=== PATIENT | female | born 1960 | race Caucasian/White ===

== ENCOUNTER 2017-09-11 14:57 | Emergency (ER) | payer OTHER ==
[2017-09-11 15:24] VITALS: BP 119/89; PULSE 99; TEMP 98.2; BMI 22.9
--- NOTE | 2017-09-11 15:37 | PDOC ---
History of Present Illness - History of Present Illness Initial Comments: 09/11/17 15:47 The patient is a 57 year old female with a past medical history of asthma, diverticulitis, COPD, and menopausal, who presents to the ED with right and left quadrant abdominal pain. She reports waking up 5 days ago feeling bloated. Three days ago she reports taking citrate of magnesia. She reports her primary care physician recommended miralax which she took last night. She reports that her PCP told her she was constipated and her heart rate was elevated. She reports taking an X-Ray earlier this morning, which she reports was normal. She reports to have taken citrate of magnesia 3 hours ago. She reports being at work this morning when her abdominal pain began. She reports her abdominal pain to be diffuse across her upper abdominal region. She ranks her pain as an 8 and debilitating. She reports nausea without emesis. She reports SOB due to her asthma upon significant exertion. She reports loose stool due to her intake of miralax and citrate of magnesia. She denies recent fevers, chills, headache or dizziness. She denies recent vomit or constipation. She denies recent dysuria, frequency, urgency or hematuria. She denies recent chest pain. Allergies: Morphine. Past surgical history: None reported. Social history: Former smoker (Quit 20 years ago). Social EtOH use and recreational drug use. <Monique Saldaña - Last Filed: 09/11/17 18:57> <Osmel Pearson - Last Filed: 09/11/17 19:43> - General Chief Complaint: Pain Stated Complaint: RIGHT UPPER ABDOMINAL PAIN Time Seen by Provider: 09/11/17 15:19 Past History <Monique Saldaña - Last Filed: 09/11/17 18:57> - Past Medical History Asthma: Yes COPD: Yes GI Disorders: Yes (DIVERTICULITIS) Kidney Stones: Yes - Suicide/Smoking/Psychosocial Hx Smoking History: Former smoker Have you smoked in the past 12 months: No If you are a former smoker, when did you quit?: 10 YRS Hx Alcohol Use: Yes (SOCIAL) Drug/Substance Use Hx: No Substance Use Type: None <Osmel Pearson - Last Filed: 09/11/17 19:43> - Past Medical History Allergies/Adverse Reactions: Allergies Allergy/AdvReac Type Severity Reaction Status Date / Time morphine Allergy Itching Verified 09/11/17 14:59 Home Medications: Ambulatory Orders Zolpidem Tartrate [Ambien] 10 mg PO HS PRN 11/30/13 Cholecalciferol (Vitamin D3) [Vitamin D3] 5,000 unit PO DAILY 09/11/17 Pantoprazole Sodium [Protonix] 40 mg PO DAILY #14 tablet. 09/11/17 Prednisone 1 tab PO DAILY 09/11/17 Review of Systems - Review of Systems Able to Perform ROS?: Yes Comments:: 09/11/17 15:46 CONSTITUTIONAL:+Bloating. Absent: fever, no chills, no fatigue EYES: Absent: visual changes ENT: Absent: ear pain, no sore throat CARDIOVASCULAR: Absent: chest pain, no palpitations RESPIRATORY: Absent: cough, no SOB GI:+Abdominal Pain. + Nausea. +Diarrhea. Absent:no vomiting, no constipation GENITOURINARY: Absent: dysuria, no frequency, no hematuria MUSKULOSKELETAL: Absent: back pain, no arthralgia, no myalgia SKIN: Absent: rash NEURO: Absent: headache All Other Systems: Reviewed and Negative <Monique Saldaña - Last Filed: 09/11/17 18:57> *Physical Exam - Vital Signs Last Vital Signs Temp Pulse Resp BP Pulse Ox 98.2 F 99 H 20 119/89 95 09/11/17 14:58 09/11/17 14:58 09/11/17 14:58 09/11/17 14:58 09/11/17 14:58 - Physical Exam Comments: 09/11/17 16:18 GENERAL: Well developed, well nourished. Awake and alert. No acute distress. HEENT: Normocephalic, atraumatic. PERRLA, EOMI. No conjunctival pallor. Sclera are non- icteric. Moist mucous membranes. Oropharynx is clear. NECK: Supple. Full ROM. No JVD. Carotid pulses 2+ and symmetric, without bruits. No thyromegaly. No lymphadenopathy. CARDIOVASCULAR: Regular rate and rhythm. No murmurs, rubs, or gallops. Distal pulses are 2+ and symmetric. PULMONARY: No evidence of respiratory distress. Lungs clear to auscultation bilaterally. No rales or rhonchi. ABDOMINAL: +Mildly distended. +Bowel sounds present and high pitch in character. +Diffuse tenderness to palpation most tender in the right lower quadrant of [place]. No significant guarding or rebound. No organomegaly. PELVIC: Normal external genitalia. No discharge of lesions. Cervix no liparus. Uterus nongravern, not enlarged. No adnexal mass or tenderness. No CMT. MUSCULOSKELETAL Normal range of motion at all joints. No bony deformities or tenderness. No CVA tenderness. EXTREMITIES: No cyanosis. No clubbing. No edema. No calf tenderness. SKIN: Warm and dry. Normal capillary refill. No rashes. No jaundice. NEUROLOGICAL: Alert, awake, appropriate. Cranial nerves 2-12 intact. No deficits to light touch and temperature in face, upper extremities and lower extremities. No motor deficits in the in face, upper extremities and lower extremities. Normoreflexic in the upper and lower extremities. Normal speech. Toes are down- going bilaterally. Gait is normal without ataxia. PSYCHIATRIC: Cooperative. Good eye contact. Appropriate mood and affect. <Monique Saldaña - Last Filed: 09/11/17 18:57> ED Treatment Course - LABORATORY CBC & Chemistry Diagram: 09/11/17 15:46 09/11/17 15:35 <Monique Saldaña - Last Filed: 09/11/17 18:57> - LABORATORY CBC & Chemistry Diagram: 09/11/17 15:46 09/11/17 15:35 <Osmel Pearson - Last Filed: 09/11/17 19:43> Progress Note - Progress Note Progress Note: CT is negative. Labs show no significant abnormalities other than 3+ blood in the urine with 3-5 red cells. The possibility of a kidney stone that passed is remote but a consideration. Gastroenteritis is also a consideration. As well as gastritis/early peptic ulcer disease. Will continue proton pump inhibitor and recommend GI ,, [facility] follow-up within one week if pain persists, or return to the emergency room for further evaluation if pain becomes more severe or other symptoms develop. <Osmel Pearson - Last Filed: 09/11/17 19:43> Medical Decision Making - Medical Decision Making 09/11/17 16:06 EKG: Normal sinus rhythm. Prolonged QT. Abnormal ECG. Vent rate: 88bpm. NV interval: 136 ms QRS duration: 78 ms QT/QTc 406/491 ms P-R-T axes 35 20 44 09/11/17 18:53 Abdomen X-Ray Upright and recumbent frontal radiographs were obtained. The intestinal bowel gas pattern appears unremarkable. There is no radiographic evidence of pneumoperitoneum. The soft tissue structures appear unremarkable as visualized. No significant colonic fecal retention is noted. Impression: No definite radiographic abnormality defined. Reported by: Dr. Nadir Muir 09/11/17 18:58 Chest X-Ray No discrete infiltrate or pleural effusion is noted. The heart, hilia and mediastinum demonstrate no obvious abnormality. Impression: No definite interval change is seen in comparison to a prior radiographic study of 02/29/2016. If there is ongoing symptomatology CT evaluation is suggested, nonemergent unless otherwise clinically indicated. Reported by: Dr. Nadir Muir <Monique Saldaña - Last Filed: 09/11/17 18:57> - Medical Decision Making 09/11/17 16:16 Five-day history of worsening lower abdominal pain, seems to have localized in the right lower quadrant. Taking laxatives with resultant diarrhea, small amount , no blood. Nausea but no vomiting. Taking by mouth fluids but no appetite. Examination with tenderness at McBurney's point, mild to moderate, but no guarding or rebound. Pelvic exam with no CMT, adnexal masses or tenderness, discharge or lesions. <Osmel Pearson - Last Filed: 09/11/17 19:43> *DC/Admit/Observation/Transfer - Attestations Scribe Attestion: 09/11/17 15:48 Documentation prepared by Monique Saldaña, acting as medical office representative for Osmel Pérez MD. <Monique Saldaña - Last Filed: 09/11/17 18:57> - Discharge Dispostion Admit: No <Osmel Pearson - Last Filed: 09/11/17 19:43> Diagnosis at time of Disposition: Viral gastroenteritis - Discharge Dispostion Disposition: HOME Condition at time of disposition: Stable - Patient Instructions Printed Discharge Instructions: DI for Viral Gastroenteritis -- Adult Additional Instructions: Rest, clear liquid diet. If symptoms persist, see career placement specialist, urologist , and [facility] for further examination and treatment. Return to the ER if symptoms worsen or other severe symptoms occur. - Post Discharge Activity Forms/Work/School Notes: Back to Work
[2017-09-11 15:58] LABS: BASOPHIL 0.3 % (0-2.0); EOSINOPHIL 0.2 % (0-4.5); MCHC 33.3 g/dl (32.0-36.0); MEAN PLT VOLUME 9.5 fl (7.5-11.1); NEUTROPHILS 84.9 % (42.8-82.8); PLATELET COUNT 330 K/MM3 (134-434); RDW 12.6 % (11.6-15.6); WHITE BLOOD COUNT 7.2 K/mm3 (4.0-10.8)
[2017-09-11 16:29] LABS: ALBUMIN 4.4 g/dl (3.5-5.0); ALK PHOS 75 U/L (32-92); ANION GAP 9 (8-16); CALCIUM 9.6 mg/dl (8.4-10.2); CO2 26 mmol/L (22-28); CPK 71 IU/L (26-192); CREATININE 0.8 mg/dl (0.6-1.3); GLUCOSE,RANDOM 114 mg/dl (74-106); SGOT/AST 20 U/L (10-42); SGPT/ALT 15 U/L (10-40); TOT PROT 7.3 g/dl (6.4-8.3)
[2017-09-11] MEDS ORDERED: PANTOPRAZOLE SODIUM 40 MG in SODIUM CHLORIDE 100 ML IVPB ONE (16:44)
[2017-09-11] MEDS ORDERED: PANTOPRAZOLE SODIUM 40 MG VIAL ONE (16:54)
[2017-09-11 17:03] LABS: TROPONIN I (DFP) < 0.03 ng/ml (0.03-0.50)
[2017-09-11 17:32] LABS: URINE APPEARANCE Clear; URINE BILIRUBIN Negative (NEGATIVE); URINE GLUCOSE (UA) Negative (NEGATIVE); URINE KETONE 1+ (NEGATIVE); URINE LEUK ESTERASE Negative (NEGATIVE); URINE NITRITE Negative (NEGATIVE); URINE PROTEIN Negative (NEGATIVE); URINE UROBILINOGEN 0.2 (0.2-1.0)
[2017-09-11 17:45] LABS: URINE BLOOD 3+ (NEGATIVE); URINE COLOR YELLOW
[2017-09-11 17:59] LABS: URINE WBC 0-2 (0-5)
--- NOTE | 2017-09-12 13:25 | EKG ---
Test Reason : Blood Pressure : / mmHG Vent. Rate : 088 BPM Atrial Rate : 088 BPM P-R Int : 136 ms QRS Dur : 078 ms QT Int : 406 ms P-R-T Axes : 035 020 044 degrees QTc Int : 491 ms NORMAL SINUS RHYTHM RSR' OR QR PATTERN IN V1 SUGGESTS RIGHT VENTRICULAR CONDUCTION DELAY PROLONGED QT ABNORMAL ECG WHEN COMPARED WITH ECG OF 29-FEB-2016 21:01, NO SIGNIFICANT CHANGE WAS FOUND Confirmed by MIKEY GARCIA MD ([id number] on 09/12/2017 1:25:06 PM Referred By: MD [place] Confirmed By:MIKEY GARCIA MD
== END 2017-09-11 20:01 | disposition home or self-care (01) ==
LOC: FER 14:57
PROC: 3E033GC Introduction of Other Therapeutic Substance into Peripheral Vein, Percutaneous Approach (ICD-10-PCS; principal; 2017-09-11)
DX: A08.4 Viral intestinal infection, unspecified (principal)
CPT/HCPCS: 36415; 71010-TC; 74177-TC; 80053; 81003; 81015; 82550; 83690; 84484; 84703; 85025; 93005; 99282-25

== ENCOUNTER 2020-07-07 09:31 | Day surgery (SDC) | payer OTHER ==
--- OUTSIDE RECORDS SUMMARY | 2020-06-28 13:33 | XMS ---
:1960 [facility] Care Team Providers Name Role Phone RICHIE MONCADA NP. Unavailable MONCADA BRICK GRADER, T. Unavailable MONCADA BRICK GRADER, T. Unavailable Unavailable MONCADA BRICK GRADER, T. Unavailable Unavailable Jaylene Unavailable Unavailable Jaylene Unavailable Unavailable Jaylene Unavailable Unavailable Jaylene Unavailable Unavailable Jaylene Unavailable Unavailable Jaylene Unavailable Unavailable Jaylene Unavailable Unavailable Jaylene Unavailable Unavailable Jaylene Unavailable Unavailable MONCADA BRICK GRADER, T. Unavailable Unavailable MONCADA BRICK GRADER, T. Unavailable Unavailable MONCADA BRICK GRADER, T. Unavailable Unavailable MONCADA BRICK GRADER, T. Unavailable Unavailable Re-disclosure Warning The records that you are about to access may contain information from federally- assisted alcohol or drug abuse programs. If such information is present, then the following federally mandated warning applies: This information has been disclosed to you from records protected by federal confidentiality rules (42 CFR part 2). The federal rules prohibit you from making any further disclosure of this information unless further disclosure is expressly permitted by the written consent of the person to whom it pertains or as otherwise permitted by 42 CFR part 2. A general authorization for the release of medical or other information is NOT sufficient for this purpose. The Federal rules restrict any use of the information to criminally investigate or prosecute any alcohol or drug abuse patient.The records that you are about to access may contain highly sensitive health information, the redisclosure of which is protected by Article 27-F of the [facility] Public Health law. If you continue you may haveaccess to information: Regarding HIV / AIDS; Provided by facilities licensed or operated by the [facility] Office of Mental Health; or Provided by the [facility] Office for People With Developmental Disabilities. If such information is present, then the following [facility] mandated warning applies: This information has been disclosed to you from confidential records which are protected by state law. State law prohibits you from making any further disclosure of this information without the specific written consent of the person to whom it pertains, or as otherwise permitted by law. Any unauthorized further disclosure in violation of state law may result in a fine or assisted sentence or both. A general authorization for the release of medical or other information is NOT sufficient authorization for further disclosure. Allergies and Adverse Reactions Type Description Substance Reaction Status Data Source(s ) D morphine morphine ITCHING [facility] Drug allergy MORPHINE SULFATE Sulfur Active MEDGEN ([facility], ) Encounters Encounter Providers Location Date Indications Data Source(s ) Attender: Chay 06/22/2020 [facility]ender: Chay Mariee 06/22/2020 12:00:00 A M EDT MEDGEN ([facility]) Office Attender: Chay Mariee 06/22/2020 12:00:00 A M EDT MEDGEN ([facility]) Office Attender: Chay Mariee 06/22/2020 12:00:00 A M EDT MEDGEN ([facility]) Office Outpatient Attender: RICHIE ATKINS [facility] 05/13/2020 Diverticulitis [place] Pre andre MONCADA CT 02:10:49 PM EDT [facility] NPAttender: [facility] MONCADA NPAttender: RICHIE MONCADA NPAttender: RICHIE MONCADA NPAttender: RICHIE MONCADA NPAttender: RICHIE MONCADA NPAttender: RICHIE MONCADA NPReferrer: RICHIE MONCADA BRICK GRADER Diverticulitis Outpatient Attender: RICHIE Gustafson 05/13/2020 [place] Pres quinn MONCADA [place]UST 02:10:49 PM EDT [facility] - 05/13/[address] 11:59:59 PM EDT P Attender: RICHIE [facility] CT 05/10/2020 [place]iculitis [facility]ADA 11:22:20 AM EDT [place] [place] NPAttender: [facility] RICHIE MONCADA NPAttender: RICHIE MONCADA NPAttender: RICHIE MONCADA NPAttender: RICHIE MONCADA NPAttender: RICHIE MONCADA NPAttender: RICHIE MONCADA NPReferrer: RICHIE MONCADA BRICK GRADER Diverticulitis P Attender: RICHIE [facility] CT 05/10/2020 Diverticulitis [facility] MONCADA NPAttender: 10:41:18 AM EDT [facility] NPAttender: RICHIE MONCADA NPAttender: RICHIE MONCADA NPAttender: RICHIE MONCADA NPAttender: RICHIE MONCADA NPAttender: RICHIE MONCADA NPReferrer: RICHIE MONCADA BRICK GRADER Diverticulitis P Attender: RICHIE [facility] CT 05/10/2020 Diverticulitis [facility]ADA NPAttender: 10:37:35 AM EDT [facility] NPAttender: RICHIE MONCADA NPAttender: RICHIE MONCADA NPAttender: RICHIE MONCADA NPAttender: RICHIE MONCADA NPAttender: RICHIE MONCADA NPReferrer: RICHIE MONCADA BRICK GRADER Diverticulitis P Attender: RICHIE [facility] CT 05/06/2020 Diverticulitis [facility] NPAttender: 09:39:37 AM EDT [facility] NPAttender: RICHIE MONCADA NPAttender: RICHIE MONCADA NPAttender: RICHIE MONCADA NPAttender: RICHIE MONCADA NPAttender: RICHIE MONCADA NPReferrer: RICHIE MONCADA BRICK GRADER Diverticulitis Immunizations Vaccine Date Status Description Data Source(s) New in 2011. IIV4 09/17/2018 12:00:00 completed ME BANUELOS ([facility], PC) Medications Medication Brand Start Product Dose Route Administrative Pharmacy at Indications Reaction Description Data Name Date Form Instructions Instructions Source(s) Rosuvastati ROSUVA 06/22/ TABLET 30 complet ROSU VASTATIN MEDGEN (St n calcium 5 STATIN 2019 ed [facility] MG Oral :28820 12:00: Medical, Tablet 4 00 AM PC) ROSUVASTATI EDT N:[id number] Zolpidem AMBIEN 06/22/ TABLET 30 complet AMBIEN MEDGEN (St tartrate 10 :41632 2019 ed [facility] MG Oral 5 12:00: Medical, Tablet 00 AM PC) [Ambien] EDT AMBIEN:8548 75 Hydrochloro HYDROC 05/02/ CAPSULE 30 complet HYD ROCHLOROT MEDGEN (St thiazide HLOROT 2019 ed HIAZIDE [facility] 12.5 MG HIAZID 12:00: Medical, Oral E:1999 00 AM PC) Capsule 03 EDT HYDROCHLORO THIAZIDE:19 9903 montelukast MUARIZIO 05/02/ TABLET 30 complet JON ELUKAST MEDGEN (St 10 MG Oral UKAST: 2019 ed [facility] Tablet [id number] 12:00: Medical, MONTELUKAST 00 AM PC) :[id number] EDT pantoprazol PANTOP 05/02/ DELAYED 30 complet EDGAR TOPRAZOLE MEDGEN (St e 40 MG RAZOLE 2019 RELEASE ed [facility] Delayed :61382 12:00: TABLET Medica l, Release 0 00 AM PC) Oral Tablet EDT PANTOPRAZOL E:001753 Zolpidem ZOLPID 12/29/ TABLET 30 complet ZOLPIDE M MEDGEN (St tartrate 10 EM:854 2019 ed [facility] MG Oral 873 12:00: Medical, Tablet 00 AM PC) ZOLPIDEM:85 EDT 4873 Albuterol VENTOL 07/22/ AEROSOL 1 complet SEBASTIÁN SURENDRA HFA MEDGEN (St 0.09 IN 2018 ed [facility] MG/ACTUAT HFA:13 12:00: Medica l, Metered 14522 00 AM PC) Dose EDT Inhaler [Ventolin] VENTOLIN HFA:[id number] Vitamin C q06055 .0 Oral [place] 2018 tab [facility] 11:22: an - 37 AM [facility] Vitamin B12 u51889 .0 Oral [place] 2018 tab [facility] 11:22: an - 27 AM [facility] Vitamin D n25446 .0 Oral [place] 2018 tab [facility] 11:22: an - 19 AM [facility] pantoprazol pantop 40.0 Oral [place] e 40 MG razole 2018 mg [facility] Delayed 40 mg 11:22: an - Release oral 08 AM Orr Oral Tablet enteri [facility] pantoprazol c Hospital e 40 mg coated Center oral tablet enteric coated tablet montelukast maurizio .0 [place] 10 MG Oral ukast 2018 mg Pres[facility] Tablet 10 mg 08:54: an - montelukast oral 40 AM Orr 10 mg oral tablet [facility] tablet [facility] Zolpidem zolpid .0 [place] tartrate 10 em 10 2018 mg Presbyt bam MG Oral mg 08:54: an - Tablet oral 37 AM [place] zolpidem 10 tablet [facility] mg oral Hospital tablet Center Ventolin [id number] 11/05/ HFA 90 2018 [facility] mcg/inh 08:54: an - inhalation 34 AM [place] aerosol [facility] with [facility] adapter Center Flovent [id number] Diskus 100 2018 [facility] i mcg 08:54: an - inhalation 31 AM [place] powder [facility] Cholecalcif CHOLEC CHOLEC ALCIFE MEDGEN (St virgil 5000 ALCIFE 2017 ed ROL [facility] UNT Oral ROL:24 12:00: Medical , Capsule 0029 00 AM PC) CHOLECALCIF EST VIRGIL:747075 Vitamin B CYANOC CYANOCOB ALAM MEDGEN (St 12 0.5 MG OBALAM 2017 ed [place] [facility] Oral Tablet [place]:313 12:00: Medi annika, CYANOCOBALA 896 00 AM PC) MIN:945508 EST Insurance Providers Payer name Policy type Policy ID Covered Covered republican's Policy P mohan / Coverage republican ID relationship to Davey Inf ormation type davey [facility] [id number] 1 [id number] 700 CARE [place] CARLOS ALBERTO [id number] SP [id number] HEALTH NON CAP CARLOS ALBERTO[facility] [id number] [facility] HEALTH PLAN CARLOS ALBERTO [id number] SP [id number] HEALTH NON CAP Problems, Conditions, and Diagnoses Code Display Name Description Problem Effective Data Type Dates Source(s) J20.9 Acute ACUTE BRONCHITIS, Problem 10/19/2019 MEDGEN ([address] bronchitis, UNSPECIFIED 12:00:00 AM [facility] unspecified EST Medical, PC) Z76.0 Encounter for ENCOUNTER FOR ISSUE OF Problem 07/22/2019 MEDGEN (St issue of repeat REPEAT PRESCRIPTION 12:00:00 AM [facility] prescription [facility], ) G47.00 Insomnia, INSOMNIA, UNSPECIFIED Problem 07/22/2019 MED GEN (St unspecified 12:00:00 AM [facility], ) K58.2 Mixed irritable MIXED IRRITABLE BOWEL Problem 9 MEDGEN ([address] bowel syndrome SYNDROME 12:00:00 AM [facility], ) R09.81 Nasal congestion NASAL CONGESTION Problem 09/17/2018 ME DGEN (St 12:00:00 AM [facility], ) R60.0 Localized edema LOCALIZED EDEMA Problem 03/12/2018 MEDG EN (St 12:00:00 AM [facility], ) E78.5 Hyperlipidemia, HYPERLIPIDEMIA, Problem 01/29/2018 MEDG EN (St unspecified UNSPECIFIED 12:00:00 AM [facility], ) R60.9 Edema, EDEMA, UNSPECIFIED Problem 01/29/2018 MEDGEN (St unspecified 12:00:00 AM [facility], ) K21.9 Gastro-esophagea GASTRO-ESOPHAGEAL REFLUX Problem 10/22 MEDGEN (St l reflux disease DISEASE WITHOUT 12:00:00 AM [facility] without ESOPHAGITIS [facility], ) esophagitis Z80.0 Family history FAMILY HISTORY OF Problem 09/10/2017 MED GEN (St of malignant MALIGNANT NEOPLASM OF 12:00:00 AM [facility] neoplasm of DIGESTIVE ORGANS [facility] , ) digestive organs E78.00 Pure PURE Problem 09/10/2017 MEDGEN (St hypercholesterol HYPERCHOLESTEROLEMIA 12:00:00 AM [facility] emia, [facility], ) unspecified K59.04 Chronic CHRONIC IDIOPATHIC Problem 09/10/2017 MEDGEN ([address] idiopathic CONSTIPATION 12:00:00 AM [facility] constipation [facility], ) J45.901 Unspecified UNSPECIFIED ASTHMA WITH Problem 09/10/2017 MEDGEN (St asthma with (ACUTE) EXACERBATION 12:00:00 AM [facility] (acute) [facility], ) exacerbation R14.0 Abdominal ABDOMINAL DISTENSION Problem 09/10/2017 MEDG EN (St distension (GASEOUS) 12:00:00 AM [facility] (gaseous) [facility], ) R07.89 Other chest pain OTHER CHEST PAIN Problem 09/10/2017 ME DGEN (St 12:00:00 AM [facility], ) R05 Cough COUGH Problem 09/10/2017 MEDGEN (St 12:00:00 AM [facility], ) Surgeries/Procedures Procedure Description Date Indications Data Source(s) Documentation of current 06/22/2020 MED GEN ([facility] medications (procedure) 12:00:00 AM EDT jose miguel, ) ECG ROUTINE ECG W/LEAST 06/22/2020 MEDG EN ([facility] 12 LDS W/I&R 12:00:00 AM [facility], ) Documentation of current 10/19/2019 MED GEN ([facility] medications (procedure) 12:00:00 AM [facility] jose miguel, ) Documentation of current 10/19/2019 MED GEN ([facility] medications (procedure) 12:00:00 AM [facility] OFFICE OUTPATIENT VISIT 10/19/2019 MEDG EN ([facility] 15 MINUTES 12:00:00 AM [facility], ) Documentation of current 07/22/2019 MED GEN ([facility] medications (procedure) 12:00:00 AM EDT jose miguel, ) Documentation of current 07/22/2019 MED GEN ([facility] medications (procedure) 12:00:00 AM EDT jose miguel, ) Documentation of current 07/22/2019 MED GEN ([facility] medications (procedure) 12:00:00 AM EDT jose miguel, ) Documentation of current 07/22/2019 MED GEN ([facility] medications (procedure) 12:00:00 AM EDT jose miguel, ) Documentation of current 07/22/2019 MED GEN ([facility] medications (procedure) 12:00:00 AM EDT jose miguel, PC) Documentation of current 07/22/2019 MED GEN ([facility] medications (procedure) 12:00:00 AM EDT jose miguel, ) Documentation of current 07/22/2019 MED GEN ([facility] medications (procedure) 12:00:00 AM EDT jose miguel, ) Documentation of current 07/22/2019 MED GEN ([facility] (procedure) [facility] Documentation of current 07/22/2019 MED GEN ([facility] medications (procedure) 12:00:00 AM [facility] Documentation of current 07/22/2019 MED GEN ([facility] medications (procedure) 12:00:00 AM [facility] Documentation of current 07/22/2019 MED GEN ([facility] medications (procedure) 12:00:00 AM EDT [facility], ) Documentation of current 07/22/2019 MED GEN ([facility] medications (procedure) 12:00:00 AM EDT [facility], ) Documentation of current 07/22/2019 MED GEN ([facility] medications (procedure) 12:00:00 AM EDT [facility], ) Documentation of current 07/22/2019 MED GEN ([facility] medications (procedure) 12:00:00 AM T [facility], ) Documentation of current 07/22/2019 MED GEN (Cs[facility] medications (procedure) 12:00:00 AM EDT [facility], ) Injection, vitamin b-12 07/22/2019 MEDG EN ([facility] cyanocobalamin, up to 12:00:00 AM EDT [facility], ) 1000 mcg OFFICE OUTPATIENT VISIT 07/22/2019 MEDG EN ([facility] 15 MINUTES 12:00:00 AM [facility], ) THERAPEUTIC 07/22/2019 [facility] ([facility] PROPHYLACTIC/DX INJECTION 12:00:00 AM [facility], ) SUBQ/IM INFLUENZA VACCINE 07/22/2019 MEDGEN ([facility] 12:00:00 AM [facility], ) IMADM PRQ ID SUBQ/IM NJXS 07/22/2019 IA DGEN ([facility] 1 VACCINE 12:00:00 AM [facility], ) Documentation of current 02/25/2019 MED GEN ([facility] medications (procedure) 12:00:00 [facility] Documentation of current 02/25/2019 MED GEN ([facility] medications (procedure) 12:00:00 AM EDT [facility], ) OFFICE OUTPATIENT VISIT 02/25/2019 MEDG EN ([facility] 15 MINUTES 12:00:00 AM KATERIN Salas, MILA) Documentation of current 09/17/2018 MED GEN ([facility] medications (procedure) 12:00:00 AM MILA Pool) Documentation of current 09/17/2018 MED GEN ([facility] (procedure) 12:00:00 AM MILA Pool) Documentation of current 09/17/2018 MED GEN ([facility] medications (procedure) 12:00:00 AM BRAD gillespie PC) Documentation of current 09/17/2018 MED GEN ([facility] medications (procedure) 12:00:00 AM BRAD gillespie PC) Documentation of current 09/17/2018 MED GEN ([facility] medications (procedure) 12:00:00 AM MILA Pool) Documentation of current 09/17/2018 MED GEN ([facility] medications (procedure) 12:00:00 AM BRAD gillespie, PC) Documentation of current 09/17/2018 MED GEN ([facility] medications (procedure) 12:00:00 AM MILA Pool) Documentation of current 09/17/2018 MED GEN ([facility] medications (procedure) 12:00:00 AM MILA Pool) Documentation of current 09/17/2018 MED GEN ([facility] medications (procedure) 12:00:00 AM MILA Pool) Documentation of current 09/17/2018 MED GEN ([facility] medications (procedure) 12:00:00 AM BRAD gillespie PC) Documentation of current 09/17/2018 MED GEN ([facility] medications (procedure) 12:00:00 AM BRAD gillespie PC) Documentation of current 09/17/2018 MED GEN ([facility] medications (procedure) 12:00:00 AM BRAD gillespie PC) Documentation of current 09/17/2018 MED GEN ([facility] medications (procedure) 12:00:00 AM BRAD gillespie PC) Documentation of current 09/17/2018 MED GEN ([facility] medications (procedure) 12:00:00 AM BRAD gillespie, PC) Documentation of current 09/17/2018 MED GEN ([facility] medications (procedure) 12:00:00 AM BRAD gillespie, PC) Documentation of current 09/17/2018 MED GEN ([facility] medications (procedure) 12:00:00 AM BRAD gillespie, ) Documentation of current 09/17/2018 MED GEN ([facility] medications (procedure) 12:00:00 AM BRAD gillespie ) Documentation of current 09/17/2018 MED GEN ([facility] medications (procedure) 12:00:00 AM BRAD gillespie, ) Documentation of current 09/17/2018 MED GEN ([facility] medications (procedure) 12:00:00 AM BRAD gillespie PC) Documentation of current 09/17/2018 MED GEN ([facility] medications (procedure) 12:00:00 AM BRAD gillespie, PC) Documentation of current 09/17/2018 MED GEN ([facility] medications (procedure) 12:00:00 AM BRAD gillespie, PC) Documentation of current 09/17/2018 MED GEN ([facility] medications (procedure) 12:00:00 AM BRAD gillespie PC) Documentation of current 09/17/2018 MED GEN ([facility] medications (procedure) 12:00:00 AM BRAD gillespie, ) Documentation of current 09/17/2018 MED GEN ([facility] medications (procedure) 12:00:00 AM BRAD gillespie, PC) Documentation of current 09/17/2018 MED GEN ([facility] (procedure) 12:00:00 AM BRAD gillespie ) Injection, vitamin b-12 09/17/2018 MEDG EN ([facility] cyanocobalamin, up to 12:00:00 AM EST Me biggs, PC) 1000 mcg OFFICE OUTPATIENT VISIT 09/17/2018 MEDG EN ([facility] 15 MINUTES 12:00:00 AM [facility], PC) THERAPEUTIC 09/17/2018 MED[facility] ([facility] PROPHYLACTIC/DX INJECTION 12:00:00 AM [facility], PC) SUBQ/IM INFLUENZA VACCINE 09/17/2018 MEDGEN ([facility] 12:00:00 AM [facility], PC) IMADM PRQ ID SUBQ/IM NJXS 09/17/2018 ME DGEN ([facility] 1 VACCINE 12:00:00 AM [facility], PC) Documentation of current 03/12/2018 MED GEN ([facility] medications (procedure) 12:00:00 AM KATERIN gillespie, ) Documentation of current 03/12/2018 MED GEN ([facility] medications (procedure) 12:00:00 AM EDT edical, ) Documentation of current 03/12/2018 MED GEN ([facility] (procedure) 12:00:00 [facility] Documentation of current 03/12/2018 MED GEN ([facility] medications (procedure) 12:00:00 AM EDT [facility] OFFICE OUTPATIENT VISIT 03/12/2018 MEDG EN ([facility] 15 MINUTES 12:00:[address] [facility] Medical, ) Documentation of current 01/29/2018 MED GEN ([facility] medications (procedure) 12:00:00 AM [facility] ) Documentation of current 01/29/2018 MED GEN ([facility] medications (procedure) 12:00:00 AM EDT [facility] ) Documentation of current 01/29/2018 MED GEN ([facility] medications (procedure) 12:00:00 AM EDT [facility] ) Documentation of current 01/29/2018 MED GEN ([facility] medications (procedure) 12:00:00 AM EDT [facility], ) Injection, vitamin b-12 01/29/2018 MEDG EN ([facility] cyanocobalamin, up to 12:00:00 AM EDT [facility], ) 1000 mcg OFFICE OUTPATIENT VISIT 01/29/2018 MEDG EN ([facility] 15 MINUTES 12:00:00 AM ED Medical, ) THERAPEUTIC 01/29/2018 MEDGEN ([facility] PROPHYLACTIC/DX INJECTION 12:00:00 AM [facility], ) SUBQ/IM Documentation of current 10/22/2017 MED GEN ([facility] medications (procedure) 12:00:00 AM [facility] edical, ) OFFICE OUTPATIENT VISIT 10/22/2017 MEDG EN ([facility] 15 MINUTES 12:00:00 AM [facility] Medical, ) Peak expiratory flow rate 09/10/2017 ME DGEN ([facility] meter, hand held 12:00:00 AM [facility] Medical, ) NONINVASIVE EAR/PULSE 09/10/2017 MEDGEN ([facility] OXIMETRY OVERNIGHT 12:00:00 AM EST Medica l, PC) MONITOR PRESSURIZED/NONPRESSURIZE 09/10/2017 ME DGEN ([facility] D INHALATION TREATMENT 12:00:00 AM EST Me dical, PC) ECG ROUTINE ECG W/LEAST 09/10/2017 MEDG EN ([facility] 12 LDS W/I&R 12:00:00 AM EST Medical, PC) Results ID Date Data Source [id number] 05/13/2020 04:57:16 PM EDT [facility] [id number] Hospital Center Name Value Range Interpretation Description Data Source(s ) Supporting Code Document(s ) RADRPT <table border="1" [facility] viry width="95%"><[facility] [place] [facility]><col [facility] width="25%"></col>< col width="25%"></col>< col width="25%"></col>< col width="25%"></col>< /colgroup><tbody><t r><td>Exam Date Time</td><td>Proced ure</td><td>Perform ing Provider</td><td>St atus</td></tr><tr>< td>05/13/20 5:14 PM</td><td>CT Abdomen/Pelvis W Contrast</td><td>ASIM BATEMAN; </td><td>Auth (Verified)</td></tr ></tbody></table><p aragraph>Notes:</pa ragraph><paragraph> (CT Abdomen/Pelvis W Contrast) Reason For Exam: Diverticulitis</par agraph><paragraph>< content>Report</con tent>
<content ID="[id number]">CT scan of abdomen and pelvis with contrast

C linical History: Abdominal pain. Diverticulitis

Helical axial images were obtained from lung bases to the symphysis
symph ysis pubis with oral and IV contrast.

Approximately 100 cc of Optiray IV was given.
Automated exposure control is utilized for this examination.
<b r/>The lung bases demonstrate linear atelectatic changes in the right
middle lobe and in the lingula segment..
Small hiatal hernia is noted.
The liver, spleen, pancreas, and the adrenal glands appear
unremark able.
The gallbladder is contracted. No calcified gallstone is noted..
Evaluat ion of kidneys demonstrate no hydronephrosis or hydroureter.
<b r/>No significant bowel distention is identified.
The appendix is visualized and appears unremarkable.
T here is nonspecific mild thickening of sigmoid colon associated with
multiple diverticuli which may be secondary to chronic diverticulosis
or due to mild diverticulitis. No significant infiltration of
pericolonic fat or fluid collection or abscess is identified.
No significant retroperitoneal or pelvic adenopathy is noted.
The bladder appears unremarkable.
< br/>Impression: nonspecific mild thickening of sigmoid colon associated
with multiple diverticuli which may be secondary to chronic
diverti culosis or due to mild diverticulitis. No significant
inf iltration of pericolonic fat or fluid collection or abscess is
identified.< /content>
<cont ent> Final
Dictated By: Bentley Queen MD 05.13.2020 5:20 pm

Release d By: (Electronic Signature)
Sign ed: Bentley Queen MD 05.13.2020 5:20 pm

Transcr ibed: 05.13.2020 5:22 pm</content></fernando raph> Procedure Social History Code Duration Value Status Description Data Source(s ) Smoking 06/22/2020 Smoked less completed Smoked less than a MEDGE N ([facility] 12:00:00 AM EDT than a pack per pack per day fo r 20 Medical, ) day for 20 years Stopped years Stopped smoking 20 years smoking 20 ago years ago Smoking 06/22/2020 Former smoker completed Former smoker MEDGEN ( [facility] 12:00:00 AM [facility], ) Vital Signs ID Date Data Source UNK Name Value Range Interpretation Code Description Data Source(s) Heart rate 78 /min 78 /min [facility] ([facility], ) Respiratory rate 14 /min 14 /min MEDGEN ( [facility], ) Body mass index 25.5 kg/m2 25.5 kg/m2 MEDGEN (S t [facility] (BMI) [Ratio] [facility], ) Diastolic blood 70 mm[Hg] 70 mm[Hg] MEDGEN ([facility] pressure [facility], ) Systolic blood 126 mm[Hg] 126 mm[Hg] MEDGEN ([facility], ) Body weight 153 lb 153 lb [facility]GEN ([facility], ) Body height 65 in 65 in MEDGEN ([facility] [place], ) Heart rate 92 /min 92 /min MED[facility] ([facility], ) Respiratory rate 16 /min 16 /min MEDGEN ( [facility] [place], ) Body temperature 98.1 F 98.1 F MEDGEN ( [facility], ) Diastolic blood 74 mm[Hg] 74 mm[Hg] MEDGEN ([facility], ) Systolic blood 108 mm[Hg] 108 mm[Hg] MEDGEN ([facility], ) Heart rate 78 /min 78 /min MEDGEN ([facility], ) Respiratory rate 14 /min 14 /min MEDGEN ( [facility] [place], ) Body mass index 23.3 kg/m2 23.3 kg/m2 [facility] ([facility] (BMI) [Ratio[facility], ) Diastolic blood 72 mm[Hg] 72 mm[Hg] MEDGEN ([facility], ) Systolic blood 116 mm[Hg] 116 mm[Hg] MEDGEN ([facility], ) Body weight 140 lb 140 lb MEDGEN ([facility], ) Body height 65 in 65 in MEDGEN ([facility] [place], ) Heart rate 96 /min 96 /min MEDGEN ([facility], ) Respiratory rate 14 /min 14 /min MEDGEN ( [facility], ) Body mass index 25.3 kg/m2 25.3 kg/m2 MED[facility] ([facility] (BMI) [Ratio] [facility], ) Diastolic blood 82 mm[Hg] 82 mm[Hg] MEDGEN ([facility], ) Systolic blood 126 mm[Hg] 126 mm[Hg] MEDGEN ([facility], ) Body weight 152 lb 152 lb MEDGEN ([facility] [place], ) Body height 65 in 65 in MEDGEN ([facility] [place], ) Heart rate 80 /min 80 /min MEDGEN ([facility], ) Respiratory rate 12 /min 12 /min MEDGEN ( [facility] [place], ) Body temperature 98.9 F 98.9 F MEDGEN ( [facility] [place], ) Body mass index 24.1 kg/m2 24.1 kg/m2 MED[facility] ([facility] (BMI) [Ratio] [facility], ) Diastolic blood 74 mm[Hg] 74 mm[Hg] MEDGEN ([facility], ) Systolic blood 116 mm[Hg] 116 mm[Hg] MEDGEN ([facility], ) Body weight 145 lb 145 lb MEDGEN ([facility] [place], ) Body height 65 in 65 in [facility]GEN ([facility], ) Heart rate 78 /min 78 /min MEDGEN ([facility], ) Respiratory rate 12 /min 12 /min MEDGEN ( [facility], ) Body mass index 23.5 kg/m2 23.5 kg/m2 [facility] ([facility] (BMI) [Ratio] [facility], ) Diastolic blood 80 mm[Hg] 80 mm[Hg] MEDGEN ([facility], ) Systolic blood 128 mm[Hg] 128 mm[Hg] MEDGEN ([facility], ) Body weight 141 lb 141 lb MEDGEN ([facility] [place], ) Body height 65 in 65 in MEDGEN ([facility] [place], ) Heart rate 84 /min 84 /min MEDGEN ([facility], ) Respiratory rate 12 /min 12 /min MEDGEN ( [facility] [place], ) Body mass index 23.6 kg/m2 23.6 kg/m2 [facility] ([facility] (BMI) [Ratio[facility], ) Diastolic blood 60 mm[Hg] 60 mm[Hg] [facility] ([facility], ) Systolic blood 102 mm[Hg] 102 mm[Hg] [facility] ([facility], ) Body weight 142 lb 142 lb [facility] ([facility], ) Body height 65 in 65 in [facility] ([facility], ) Heart rate 76 /min 76 /min [facility], ) Respiratory rate 12 /min 12 /min [facility] ( [facility], ) Body mass index 24 kg/m2 24 kg/m2 MED[facility] ([facility] (BMI) [Ratio] [facility], ) Diastolic blood 70 mm[Hg] 70 mm[Hg] [facility] ([facility], ) Systolic blood 106 mm[Hg] 106 mm[Hg] MED[facility] ([facility], ) Body weight 144 lb 144 lb [facility] ([facility], ) Body height 65 in 65 in MEDGEN ([facility], ) Heart rate 92 /min 92 /min [facility], ) Respiratory rate 14 /min 14 /min [facility] ( [facility], ) Body mass index 23 kg/m2 23 kg/m2 [facility] ([facility] (BMI) [Ratio[facility], ) Diastolic blood 76 mm[Hg] 76 mm[Hg] [facility] ([facility], ) Systolic blood 116 mm[Hg] 116 mm[Hg] [facility] ([facility], ) Body weight 138 lb 138 lb [facility] ([facility], ) Body height 65 in 65 in [facility], ) Patient Treatment Plan of Care Planned Activity Planned Date Details Description Data Source (s) Vitamin C 11/06/2017 [facility] - 11:22:[address] [facility] Vitamin B12 11/06/2017 [facility] - 11:22:[address] [facility] Vitamin D 11/06/2017 [facility] - 11:22:[address] [facility] pantoprazole 40 MG 11/06/2017 [facility] gross - Delayed Release Oral 11:22:08 AM [facility] Tablet [place] montelukast 10 MG Oral 11/05/2017 [facility] - Tablet 08:54:[address] [facility] Zolpidem tartrate 10 MG 11/05/2017 [facility] - Oral Tablet 08:54:[address] [facility] Ventolin HFA 90 mcg/inh 11/05/2017 [facility] - inhalation aerosol with 08:54:34 AM [facility] Flovent Diskus 100 mcg 11/05/2017 [facility] - inhalation powder 08:54:31 AM [facility]
[2020-07-04 13:37] VITALS: BMI 25.7
--- NOTE | 2020-07-07 09:19 | OP ---
Operative Note - Note: Operative Date: 07/07/20 Pre-Operative Diagnosis: Left shoulder mass Operation: Left shoulder mass excision Post-Operative Diagnosis: Same as Pre-op Surgeon: [facility] Educator: Kathi Verdin Anesthesia: General Operative Report Dictated: Yes
--- OUTSIDE RECORDS SUMMARY | 2020-07-07 10:05 | XMS ---
:1960 Author Organization [facility] Care Team Providers Name Role Phone RICHIE MONCADA NP Unavailable MONCADA PAINTER TUMBLING BARREL, T. Unavailable MONCADA PAINTER TUMBLING BARREL, T. Unavailable Unavailable MONCADA PAINTER TUMBLING BARREL, T. Unavailable Unavailable Jaylene Unavailable Unavailable Jaylene Unavailable Unavailable Jaylene Unavailable Unavailable Jaylene Unavailable Unavailable Jaylene Unavailable Unavailable Jaylene Unavailable Unavailable Jaylene Unavailable Unavailable Jaylene Unavailable Unavailable Jaylene Unavailable Unavailable MONCADA PAINTER TUMBLING BARREL, T. Unavailable Unavailable MONCADA PAINTER TUMBLING BARREL, T. Unavailable Unavailable MONCADA PAINTER TUMBLING BARREL, T. Unavailable Unavailable MONCADA PAINTER TUMBLING BARREL, T. Unavailable Unavailable Re-disclosure Warning The records [...] is protected by Article 27-F of the [facility] Public Health law. If you continue you may haveaccess to information: Regarding HIV / AIDS; Provided by facilities licensed or operated by the [facility] Office of Mental Health; or Provided by the [facility] Office for People With Developmental Disabilities. If such information is present, then the following [facility] mandated warning applies: This information has been [...] Data Source(s ) D morphine morphine ITCHING [facility] Drug allergy MORPHINE SULFATE Sulfur Active [facility] [place] [place] Encounters Encounter Providers Location Date Indications Data Source(s ) Attender: Chay 06/22/2020 [facility] [place] [facility] [place] [facility] Attender: Chay Mariee 06/22/2020 12:00:00 A M EDT MEDGEN ([facility]) Office Attender: Chay Mariee 06/22/2020 12:00:00 A M EDT MEDGEN ([facility]) Office Attender: Chay Mariee 06/22/2020 12:00:00 A M EDT MEDGEN ([facility]) Office Outpatient Attender: RICHIE ATKINS [facility] 05/13/2020 Diverticulitis [place] Pre sbyteobie MONCADA CT 02:10:49 PM EDT [facility] NPAttender: [facility] CORAL NPAttender: RICHIE MONCADA NPAttender: RICHEI MONCADA NPAttender: RICHIE MONCADA NPAttender: RICHIE MONCADA NPAttender: RICHIE MONCADA NPReferrer: RICHIE MONCADA PAINTER TUMBLING BARREL Diverticulitis Outpatient Attender: RICHIE Gustafson 05/13/2020 [place] Pres quinn MONCADA [facility] 11:59:59 PM EDT P Attender: RICHIE [facility] CT 05/10/2020 [place]itis [place] [facility] 11:22:20 AM EDT [place] NPAttender: [facility] RICHIE MONCADA NPAttender: RICHIE MONCADA NPAttender: RICHIE MONCADA NPAttender: RICHIE MONCADA NPAttender: RICHIE MONCADA NPAttender: RICHIE MONCADA NPReferrer: RICHIE MONCADA PAINTER TUMBLING BARREL Diverticulitis P Attender: RICHIE [facility] 05/10/2020 [facility] NPAttender: 10:41:18 AM EDT [facility] NPAttender: RICHIE MONCADA NPAttender: RICHIE MONCADA NPAttender: RICHIE MONCADA NPAttender: RICHIE MONCADA NPAttender: RICHIE MONCADA NPReferrer: RICHIE MONCADA PAINTER TUMBLING BARREL Diverticulitis P Attender: RICHIE [facility] CT 05/10/2020 Diverticulitis [place] [facility] NPAttender: 10:37:35 AM EDT [facility] NPAttender: RICHIE MONCADA NPAttender: RICHIE MONCADA NPAttender: RICHIE MONCADA NPAttender: RICHIE MONCADA NPAttender: RICHIE MONCADA NPReferrer: RICHIE MONCADA PAINTER TUMBLING BARREL Diverticulitis P Attender: RICHIE [facility] CT 05/06/2020 Diverticulitis [place] [facility] [place] NPAttender: 09:39:37 AM EDT [facility] NPAttender: RICHIE MONCADA NPAttender: RICHIE MONCADA NPAttender: RICHIE MONCADA NPAttender: RICHIE MONCADA NPAttender: RICHIE MONCADA NPReferrer: RICHIE MONCADA PAINTER TUMBLING BARREL Diverticulitis Immunizations Vaccine Date Status Description Data Source(s) New in 2011. IIV4 09/17/2018 12:00:00 completed ME BANUELOS ([facility] Medical, ) Medications Medication Brand Start Product Dose Route Administrative Pharmacy ray Indications Reaction Description Data Name Date Form Instructions Instructions Source(s) Rosuvastati ROSUVA 06/22/ TABLET 30 complet ROSU VASTATIN MEDGEN (St n calcium 5 STATIN 2019 ed [facility] MG Oral :70571 12:00: Medical, Tablet 4 00 AM PC) ROSUVASTATI EDT N:[id number] Zolpidem AMBIEN 06/22/ TABLET 30 complet AMBIEN MEDGEN (St tartrate 10 :32314 2019 ed [facility] MG Oral 5 12:00: Medical, Tablet 00 AM PC) [Ambien] EDT AMBIEN:8548 75 Hydrochloro HYDROC 05/02/ CAPSULE 30 complet HYD ROCHLOROT MEDGEN (St thiazide HLOROT 2019 ed HIAZIDE [facility] 12.5 MG HIAZID 12:00: Medical, Oral E:1999 00 AM PC) Capsule 03 EDT HYDROCHLORO THIAZIDE:19 9903 montelukast MAURIZIO 05/02/ TABLET 30 complet JON ELUKAST MEDGEN (St 10 MG Oral UKAST: 2019 ed [facility] Tablet [id number] 12:00: Medical, MONTELUKAST 00 AM PC) :[id number] EDT pantoprazol PANTOP 05/02/ DELAYED 30 complet EDGAR TOPRAZOLE MED[facility] (St e 40 MG RAZOLE 2019 RELEASE ed [facility] Delayed :65189 12:00: TABLET Medica l, Release 0 00 AM PC) Oral Tablet EDT PANTOPRAZOL E:197652 Zolpidem ZOLPID 12/29/ TABLET 30 complet ZOLPIDE M MEDGEN (St tartrate 10 EM:854 2019 ed [facility] MG Oral 873 12:00: Medical, Tablet 00 AM PC) ZOLPIDEM:85 EDT 4873 Albuterol VENTOL 07/22/ AEROSOL 1 complet SEBASTIÁN SURENDRA HFA MEDGEN (St 0.09 IN 2018 ed [facility] MG/ACTUAT HFA:13 12:00: Medica l, Metered 34326 00 AM PC) Dose EDT Inhaler [Ventolin] VENTOLIN HFA:[id number] Vitamin C g71434 .0 Oral [place] 2018 tab [facility] 11:22: an - 37 AM [facility] Vitamin B12 j45157 .0 Oral [place] 2017 tab [facility] 11:22: an - 27 AM [facility] Vitamin D b96626 .0 Oral [place] 2018 tab [facility] 11:22: an - 19 AM [facility] pantoprazol pantop 01/31/ 40.0 Oral [place] e 40 MG razole 2018 mg [facility] Delayed 40 mg 11:22: an - Release oral 08 AM Orr Oral Tablet enteri [facility] pantoprazol c Hospital e 40 mg coated Center oral tablet enteric coated tablet montelukast maurizio .0 [place] 10 MG Oral ukast 2018 mg [facility] Tablet 10 mg 08:54: an - montelukast oral 40 AM Orr 10 mg oral tablet EST [place] [facility] [place] Zolpidem zolpid .0 [place] tartrate 10 em 10 2018 mg Presbyt bam MG Oral mg 08:54: an - Tablet oral 37 AM [place] zolpidem 10 tablet [facility] mg oral Hospital tablet [place] Ventolin [id number] 11/05/ [place] HFA 90 2018 [facility] mcg/inh 08:54: an - inhalation 34 AM [place] aerosol [facility] with Hospital adapter Center Flovent [id number] 11/05/ [place] Diskus 100 2018 [facility] i mcg 08:54: an - inhalation 31 AM [place] powder [facility] Cholecalcif CHOLEC CHOLEC ALCIFE MEDGEN (St virgil 5000 ALCIFE 2017 ed ROL [facility] UNT Oral ROL:24 12:00: Medical , Capsule 0029 00 AM PC) CHOLECALCIF EST VIRGIL:512117 Vitamin B CYANOC CYANOCOB ALAM MEDGEN (St 12 0.5 MG OBALAM 2017 ed [place] [facility] Oral Tablet [place]:313 12:00: Medi annika, CYANOCOBALA 896 00 AM PC) MIN:591332 EST Insurance Providers Payer name Policy type Policy ID Covered Covered libertarian's Policy P mohan / Coverage libertarian ID relationship to Davey Inf ormation type davey CARLOS ALBERTO [id number] SP [id number] HEALTH NON CAP CARLOS ALBERTO [id number] 1 [id number] [place]ARE [place] CARLOS ALBERTO/KENNETH [facility] [id number] [facility] HEALTH PLAN CARLOS ALBERTO [id number] SP [id number] HEALTH NON CAP Problems, Conditions, and Diagnoses Code Display Name Description Problem Effective Data Type Dates Source(s) J20.9 Acute ACUTE BRONCHITIS, Problem 10/19/2019 MED[facility] (St bronchitis, UNSPECIFIED 12:00:00 AM [facility] unspecified EST Medical, ) Z76.0 Encounter for ENCOUNTER FOR ISSUE OF Problem 07/22/2019 MEDGEN (St issue of repeat REPEAT PRESCRIPTION 12:00:[address] [facility] prescription [facility]) G47.00 Insomnia, INSOMNIA, UNSPECIFIED Problem 07/22/2019 MED GEN (St unspecified 12:00:00 AM [facility] [place]) K58.2 Mixed irritable MIXED IRRITABLE BOWEL Problem 9 MEDGEN ([address] bowel syndrome SYNDROME 12:00:00 AM [facility], ) R09.81 Nasal congestion NASAL CONGESTION Problem 09/17/2018 ME DGEN (St 12:00:00 AM [facility], ) R60.0 Localized edema LOCALIZED EDEMA Problem 03/12/2018 MEDG EN (St 12:00:00 AM [facility], ) E78.5 Hyperlipidemia, HYPERLIPIDEMIA, Problem 01/29/2018 MEDG EN (St unspecified UNSPECIFIED 12:00:00 AM [facility], ) R60.9 Edema, EDEMA, UNSPECIFIED Problem 01/29/2018 MEDGEN (St unspecified 12:00:00 AM [facility] [place]) K21.9 Gastro-esophagea GASTRO-ESOPHAGEAL REFLUX Problem 10/22 MEDGEN (St l reflux disease DISEASE WITHOUT 12:00:00 AM [facility] without ESOPHAGITIS [facility], ) esophagitis Z80.0 Family history FAMILY HISTORY OF Problem 09/10/2017 MED GEN (St of malignant MALIGNANT NEOPLASM OF 12:00:00 AM [facility] neoplasm of DIGESTIVE ORGANS [facility] , ) digestive organs E78.00 Pure PURE Problem 09/10/2017 MEDGEN (St hypercholesterol HYPERCHOLESTEROLEMIA 12:00:00 AM [facility] emia, [facility], ) unspecified K59.04 Chronic CHRONIC IDIOPATHIC Problem 09/10/2017 MEDGEN (St idiopathic CONSTIPATION 12:00:00 AM [facility] constipation [facility], ) J45.901 Unspecified UNSPECIFIED ASTHMA WITH Problem 09/10/2017 MEDGEN (St asthma with (ACUTE) EXACERBATION 12:00:00 AM [facility] (acute) [facility], ) exacerbation R14.0 Abdominal ABDOMINAL DISTENSION Problem 09/10/2017 MEDG EN (St distension (GASEOUS) 12:00:00 AM [facility] (gaseous) [facility], ) R07.89 Other chest pain OTHER CHEST PAIN Problem 09/10/2017 ME DGEN (St 12:00:00 AM [facility], ) R05 Cough COUGH Problem 09/10/2017 MEDGEN (St 12:00:00 AM [facility], ) Surgeries/Procedures Procedure Description Date Indications Data Source(s) Documentation of current 06/22/2020 MED GEN ([facility] medications (procedure) 12:00:00 AM EDT jose miguel, ) ECG ROUTINE ECG W/LEAST 06/22/2020 MEDG EN ([facility] 12 LDS W/I&R 12:00:00 AM [facility], ) Documentation of current 10/19/2019 MED GEN ([facility] medications (procedure) 12:00:00 AM [facility] jose miguel, ) Documentation of current 10/19/2019 MED GEN ([facility] medications (procedure) 12:00:00 AM [facility] jose miguel, ) OFFICE OUTPATIENT VISIT 10/19/2019 MEDG EN ([facility] 15 MINUTES 12:00:00 AM [facility], ) Documentation of current 07/22/2019 [...] GEN ([facility] medications (procedure) [facility] Documentation of current 07/22/2019 MED GEN ([facility] medications (procedure) 12:00:00 [facility], ) Documentation of current 07/22/2019 MED GEN ([facility] medications (procedure) 12:00:00 [facility], ) Documentation of current 07/22/2019 MED GEN ([facility] medications (procedure) 12:00:00 AM EDT [facility], ) Documentation of current 07/22/2019 MED GEN ([facility] medications (procedure) 12:00:00 [facility], ) Documentation of current 07/22/2019 MED GEN ([facility] medications (procedure) 12:00:00 AM EDT [facility], ) Documentation of current 07/22/2019 MED GEN ([facility] medications (procedure) 12:00:00 AM T [facility], ) Documentation of current 07/22/2019 MED GEN ([facility] medications (procedure) 12:00:00 AM EDT [facility], ) Injection, vitamin b-12 07/22/2019 MEDG EN ([facility] cyanocobalamin, up to 12:00:00 AM EDT [facility], ) 1000 mcg OFFICE OUTPATIENT VISIT 07/22/2019 MEDG EN ([facility] 15 MINUTES 12:00:00 AM [facility], ) THERAPEUTIC 07/22/2019 MEDGEN ([facility] PROPHYLACTIC/DX INJECTION 12:00:00 AM [facility], ) SUBQ/IM INFLUENZA VACCINE 07/22/2019 MEDGEN ([facility] 12:00:00 AM [facility], ) IMADM PRQ ID SUBQ/IM NJXS 07/22/2019 [place] DGEN ([facility] 1 VACCINE 12:00:00 AM [facility], ) Documentation of current 02/25/2019 MED GEN ([facility] medications (procedure) 12:00:00 [facility] ) Documentation of current 02/25/2019 MED GEN ([facility] medications (procedure) 12:00:00 [facility], ) OFFICE OUTPATIENT VISIT 02/25/2019 MEDG EN [...] medications (procedure) 12:00:00 AM BRAD gillespie, ) Injection, vitamin b-12 09/17/2018 MEDG EN ([facility] cyanocobalamin, up to 12:00:00 AM EST [facility], PC) 1000 mcg OFFICE OUTPATIENT VISIT 09/17/2018 MEDG EN ([facility] 15 MINUTES 12:00:00 AM [facility], PC) THERAPEUTIC 09/17/2018 MEDGEN ([facility] PROPHYLACTIC/DX INJECTION 12:00:00 AM [facility] Medical, PC) SUBQ/IM INFLUENZA VACCINE 09/17/2018 MEDGEN ([facility] 12:00:00 AM [facility], PC) IMADM PRQ ID SUBQ/IM NJXS 09/17/2018 [place] DGEN ([facility] 1 VACCINE 12:00:00 AM [facility], PC) Documentation of current 03/12/2018 MED GEN ([facility] medications (procedure) 12:00:[facility], ) Documentation of current 03/12/2018 MED GEN ([facility] medications (procedure) 12:00:00 AM [facility], ) Documentation of current 03/12/2018 MED GEN ([facility] medications (procedure) 12:00:00 AM [facility], ) Documentation of current 03/12/2018 MED GEN ([facility] medications (procedure) 12:00:00 AM [facility], ) OFFICE OUTPATIENT VISIT 03/12/2018 MEDG EN ([facility] 15 MINUTES 12:00:00 AM ED Medical, ) Documentation of current 01/29/2018 MED GEN ([facility] medications (procedure) 12:00:00 [facility], ) Documentation of current 01/29/2018 MED GEN ([facility] medications (procedure) 12:00:00 AM EDT [facility], ) Documentation of current 01/29/2018 MED GEN ([facility] medications (procedure) 12:00:00 AM EDT [facility], ) Documentation of current 01/29/2018 MED GEN ([facility] medications (procedure) 12:00:00 AM EDT [facility], ) Injection, vitamin b-12 01/29/2018 MEDG EN ([facility] cyanocobalamin, up to 12:00:00 AM EDT [facility], ) 1000 mcg OFFICE OUTPATIENT VISIT 01/29/2018 MEDG EN ([facility] THERAPEUTIC 01/29/2018 MEDGEN ([facility] PROPHYLACTIC/DX INJECTION 12:00:00 AM [facility], ) SUBQ/IM Documentation of current 10/22/2017 MED GEN ([facility] medications (procedure) 12:00:00 AM EST edical, ) OFFICE OUTPATIENT VISIT 10/22/2017 MEDG EN ([facility] 15 MINUTES 12:00:00 AM [facility] Medical, ) Peak expiratory flow rate 09/10/2017 [place] DGEN ([facility] meter, hand held 12:00:00 AM [facility] Medical, ) NONINVASIVE EAR/PULSE 09/10/2017 MEDGEN ([facility] OXIMETRY OVERNIGHT 12:00:00 AM EST Medica , ) MONITOR PRESSURIZED/NONPRESSURIZE 09/10/2017 ME DGEN ([facility] D INHALATION TREATMENT 12:00:00 AM EST Me dical, PC) ECG ROUTINE ECG W/LEAST 09/10/2017 MEDG EN ([facility] 12 LDS W/I&R 12:00:00 AM EST Medical, PC) Results ID Date Data Source [id number] 05/13/2020 04:57:16 PM EDT [facility] [id number] Hospital Center Name Value Range Interpretation Description Data Source(s ) Supporting Code Document(s ) RADRPT <table border="1" [facility] viry width="95%"><[facility]><col Hospital Center width="25%"></col>< col width="25%"></col>< col width="25%"></col>< col width="25%"></col>< /colgroup><tbody><t r><td>Exam Date Time</td><td>Proced ure</td><td>Perform ing Provider</td><td>St atus</td></tr><tr>< td>05/13/20 5:14 PM</td><td>CT Abdomen/Pelvis W Contrast</td><td>ASIM BATEMAN; </td><td>Auth (Verified)</td></tr ></tbody></table><p aragraph>Notes:</pa ragraph><paragraph> (CT Abdomen/Pelvis W Contrast) Reason For Exam: Diverticulitis</par agraph><paragraph>< content>Report</con tent>
<content ID="[id number]">CT scan of abdomen and pelvis with [...] than a pack per pack per day [address], ) day for 20 years Stopped years Stopped smoking 20 years smoking 20 ago years ago Smoking 06/22/2020 Former smoker completed Former smoker MED[facility] ( [facility] 12:00:00 AM [facility], ) Vital Signs ID Date Data Source UNK Name Value Range Interpretation Code Description Data Source(s) Heart rate 78 /min 78 /min [facility] ([facility], ) Respiratory rate 14 /min 14 /min [facility] ( [facility] Body mass index 25.5 kg/m2 25.5 kg/m2 MEDGEN (S [facility] (BMI) [Ratio[facility], ) Diastolic blood 70 mm[Hg] 70 mm[Hg] MED[facility] ([facility], ) Systolic blood 126 mm[Hg] 126 mm[Hg] [facility] ([facility], ) Body weight 153 lb 153 lb [facility] ([facility], ) Body height 65 in 65 in MEDGEN ([facility], ) Heart rate 92 /min 92 /min MED[facility] ([facility], ) Respiratory rate 16 /min 16 /min [facility] ( [facility] Body temperature 98.1 F 98.1 F [facility] ( [facility] Diastolic blood 74 mm[Hg] 74 mm[Hg] MEDGEN (S t [facility], ) Systolic blood 108 mm[Hg] 108 mm[Hg] MEDGEN ([facility], ) Heart rate 78 /min 78 /min MEDGEN ([facility], ) Respiratory rate 14 /min 14 /min [facility] ( [facility] [place] Body mass index 23.3 kg/m2 23.3 kg/m2 MEDGEN (S [facility] ([facility]) [[facility], ) Diastolic blood 72 mm[Hg] 72 mm[Hg] MEDGEN (S t [facility] pressure [facility], ) Systolic blood 116 mm[Hg] 116 mm[Hg] MEDGEN ([facility], ) Body weight 140 lb 140 lb MED[facility] ([facility], ) Body height 65 in 65 in MEDGEN ([facility], ) Heart rate 96 /min 96 /min MEDGEN ([facility], ) Respiratory rate 14 /min 14 /min [facility] ( [facility], ) Body mass index 25.3 kg/m2 25.3 kg/m2 MEDGEN (S t [facility] (BMI) [Ratio] Medical, ) Diastolic blood 82 mm[Hg] 82 mm[Hg] MEDGEN (S [facility], ) Systolic blood 126 mm[Hg] 126 mm[Hg] [facility] ([facility], ) Body weight 152 lb 152 lb MEDGEN ([facility], ) Body height 65 in 65 in MEDGEN ([facility], ) Heart rate 80 /min 80 /min MEDGEN ([facility], ) Respiratory rate 12 /min 12 /min MED[facility] ( [facility], ) Body temperature 98.9 F 98.9 F MEDGEN ( [facility], ) Body mass index 24.1 kg/m2 24.1 kg/m2 MEDGEN (S t [facility] (BMI) [Ratio] Medical, ) Diastolic blood 74 mm[Hg] 74 mm[Hg] MEDGEN (S [facility], ) Systolic blood 116 mm[Hg] 116 mm[Hg] [facility] ([place], ) Body weight 145 lb 145 lb MEDGEN ([facility], ) Body height 65 in 65 in MEDGEN ([facility], ) Heart rate 78 /min 78 /min MEDGEN ([facility], ) Respiratory rate 12 /min 12 /min [facility] ( [place], ) Body mass index 23.5 kg/m2 23.5 kg/m2 MEDGEN (S t [facility] (BMI) [Ratio] Medical, ) Diastolic blood 80 mm[Hg] 80 mm[Hg] MEDGEN (S [facility], ) Systolic blood 128 mm[Hg] 128 mm[Hg] [facility] ([facility], ) Body weight 141 lb 141 lb MEDGEN ([facility], ) Body height 65 in 65 in MEDGEN ([facility], ) Heart rate 84 /min 84 /min MEDGEN ([facility], ) Respiratory rate 12 /min 12 /min [facility] ( [place], ) Body mass index 23.6 kg/m2 23.6 kg/m2 MEDGEN (S t [facility] (BMI) [Ratio] Medical, ) Diastolic blood 60 mm[Hg] 60 mm[Hg] MEDGEN (S t [facility] pressure Medical, ) Systolic blood 102 mm[Hg] 102 mm[Hg] MED[facility] ([facility], ) Body weight 142 lb 142 lb [facility] ([facility], ) Body height 65 in 65 in [facility] ([facility], ) Heart rate 76 /min 76 /min [facility], ) Respiratory rate 12 /min 12 /min [facility] ( [facility], ) Body mass index 24 kg/m2 24 kg/m2 MEDGEN (S t [facility] (BMI) [Ratio] Medical, ) Diastolic blood 70 mm[Hg] 70 mm[Hg] MEDGEN (S t [facility] pressure Medical, ) Systolic blood 106 mm[Hg] 106 mm[Hg] MED[facility] ([facility], ) Body weight 144 lb 144 lb [facility] ([facility], ) Body height 65 in 65 in [facility] ([facility], ) Heart rate 92 /min 92 /min [facility] ([facility], ) Respiratory rate 14 /min 14 /min [facility] ( [facility], ) Body mass index 23 kg/m2 23 kg/m2 MEDGEN (S t [facility] (BMI) [Ratio] Medical, ) Diastolic blood 76 mm[Hg] 76 mm[Hg] MEDGEN (S [facility], ) Systolic blood 116 mm[Hg] 116 mm[Hg] MED[facility] ([facility], ) Body weight 138 lb 138 lb [facility] ([facility], ) Body height 65 in 65 in MEDGEN ([facility], ) Patient Treatment Plan of Care Planned Activity Planned Date Details Description Data Source (s) Vitamin C 11/06/2017 [facility] - 11:22:37 AM [facility] Vitamin B12 11/06/2017 [facility] - 11:22:27 AM [facility] Vitamin D 11/06/2017 [facility] - 11:22:19 AM [facility] pantoprazole 40 MG 11/06/2017 [place] [facility] - Delayed Release Oral 11:22:08 AM [facility] montelukast 10 MG Oral 11/05/2017 [place] [facility] - Tablet 08:54:40 AM [facility] Zolpidem tartrate 10 MG 11/05/2017 [place] [facility] - Oral Tablet 08:54:37 AM [facility] Ventolin HFA 90 mcg/inh 11/05/2017 [place] [facility] - inhalation aerosol with 08:54:34 AM [facility] Flovent Diskus 100 mcg 11/05/2017 [place] [facility] - inhalation powder 08:54:31 AM [facility]
[2020-07-07] MEDS ORDERED: LIDOCAINE 1%/EPI 1:100000 (20 ML MULTI DOSE VIAL) ONE (12:46)
[2020-07-07] MEDS ORDERED: MIDAZOLAM HCL 2 MG/2 ML SINGLE DOSE VIAL ONE ×2 (12:53)
[2020-07-07] MEDS ORDERED: PROPOFOL 20 ML ONE ×2 (12:53)
[2020-07-07] MEDS ORDERED: LIDOCAINE HCL/PF 2% SDV 5ML VIAL ONE (12:54)
[2020-07-07] MEDS ORDERED: ceFAZolin SODIUM 1 GM VIAL ONE (13:15)
[2020-07-07] MEDS ORDERED: ONDANSETRON 4 MG/2 ML VIAL ONE (13:15)
[2020-07-07] MEDS ORDERED: BUPIVACAINE HCL/PF 0.5% (5MG/ML) 10 ML VIAL ONE (13:17)
[2020-07-07] MEDS ORDERED: LIDOCAINE 1%/EPI 1:100000 (50 ML MULTI DOSE VIAL) NR ONE (13:29)
[2020-07-07] MEDS ORDERED: BUPIVACAINE HCL/PF 0.5% (5MG/ML) 10 ML VIAL IJ ONE (13:29)
[2020-07-07 14:05] VITALS: PULSE 77; TEMP 97.8
--- NOTE | 2020-07-07 14:10 | OP ---
DATE OF OPERATION: DATE OF DICTATION: 07/07/2020 PREOPERATIVE DIAGNOSIS: Right shoulder subcutaneous mass. POSTOPERATIVE DIAGNOSIS: Right shoulder subcutaneous mass. PROCEDURE: Right shoulder mass excision. SURGEON: William Deluna MD SERVICES TECH: SISI Schilling ANESTHESIA: Local and sedation. POSTOPERATIVE CONDITION: Stable. COMPLICATIONS: None. SPECIMEN: Mass x1. INDICATIONS: This is a pleasant woman who has been suffering from a slowly enlarging mass for many years. Because of the persisting enlargement and some discomfort she wanted to have it excised. Other treatment options were discussed including observation. The patient voiced understanding and elected to proceed. PROCEDURE: The patient was brought to the operating room where sedation was administered. The right upper extremity was prepped and draped in the usual sterile fashion. A preoperative dose of antibiotics was given and the usual timeout procedure was performed. Incision was marked out linear over the mass now. There was a small amount of skin change covering the mass over the more proximal portion. An ellipsoid incision was planned to excise this area as well. The area was then injected subcutaneously with a 50% mixture of 1% lidocaine with epinephrine and 5% Marcaine. The incision was then carried down through skin to subcutaneous tissue. Blunt spreading was used to expose the mass which was round and gaming-colored in nature. It was adherent to the skin over. There was adherence to the surrounding soft tissues. After freeing the mass from the soft tissue, it was easily withdrawn from the body. The wound was then copiously irrigated. The subcutaneous tissue was approximated using 2-0 Vicryl. The skin was closed using running 4-0 Monocryl. Steri-Strips were placed and sterile dressings. Patient was transferred to recovery room in stable condition. Jelly POWELL/[id number]
[2020-07-07 15:22] VITALS: BP 130/84
--- NOTE | 2020-07-12 15:17 | PATH ---
Surgical Pathology Report Patient Name: ELI FRANK Med. Rec. #: [id number] /Age/Gender: 1960 (Age: 59) / F Account: [id number] Location: [facility] Taken: 07/07/2020 Received: 07/07/2020 Reported: 07/12/2020 Physicians: William Deluna M.D. 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 Electronically Signed Nayana Funes M.D. Gross Description Received in formalin labeled "right shoulder mass," is a 2.2 x 2.0 x 1.2 cm gaming, firm cystic structure which is partially surfaced by a 1.4 x 0.5 cm gaming-brown, elliptical, unremarkable portion of skin. Sectioned and entirely submitted in three cassettes. /07/08/2020 saudi/07/08/2020
== END 2020-07-07 14:30 | disposition home or self-care (01) ==
LOC: FASU 09:31
PROVIDERS: ATTEND Orthopaedic Surgery Sports Medicine
PROC: 0JBD0ZZ Excision of Right Upper Arm Subcutaneous Tissue and Fascia, Open Approach (ICD-10-PCS; principal; 2020-07-07 13:29)
DX: D21.11 Benign neoplasm of connective and other soft tissue of right upper limb, including shoulder (principal)
CPT/HCPCS: 88305-TC

== ENCOUNTER 2021-03-30 10:40 | Emergency (ER) | payer OTHER ==
[2021-03-30 11:19] VITALS: BMI 25.4
[2021-03-30] MEDS ORDERED: ACETAMINOPHEN 1000 MG/100 ML VIAL (NON FORMULARY) IVPB ONE (11:25)
[2021-03-30] MEDS ORDERED: ONDANSETRON 4 MG/2 ML VIAL IVPUSH ONE (11:25)
[2021-03-30] MEDS ORDERED: SODIUM CHLORIDE 0.9% 500 ML INFUS.BAG IV ONE (11:26)
[2021-03-30] MEDS ORDERED: ACETAMINOPHEN INJECTION 100 ML IVPB ONE (11:28)
[2021-03-30] MEDS ORDERED: ONDANSETRON 4 MG/2 ML VIAL ONE (11:29)
[2021-03-30 12:33] LABS: BASO % 0.5 % (0-2.0); EOS % 4.7 % (0-4.5); HEMATOCRIT 40.5 % (32.4-45.2); HEMOGLOBIN 13.7 GM/dl (10.7-15.3); LYMPH % 14.4 % (8-40); MCH 31.8 pg (25.7-33.7); MCHC 33.8 g/dl (32.0-36.0); MEAN CELL VOLUME 94.1 fl (80-96); MEAN PLT VOLUME 8.7 fl (7.5-11.1); MONO % 6.2 % (3.8-10.2); NEUT % 74.2 % (42.8-82.8); PLATELET COUNT 355 10^3/uL (134-434); RDW 13.2 % (11.6-15.6); WHITE BLOOD COUNT 13.6 K/mm3 (4.0-10.8)
[2021-03-30 12:39] LABS: ACTIVATED PTT 25.8 SECONDS (25.2-36.5)
[2021-03-30 12:43] LABS: INR 1.02 (0.82-1.09); PROTHROMBIN TIME (PATIENT) 11.4 SEC (10.2-13.0)
[2021-03-30] MEDS ORDERED: KETOROLAC TROMETHAMINE 30 MG/1 ML VIAL IVPUSH ONE (12:44)
[2021-03-30 12:48] LABS: ALBUMIN 4.1 g/dl (3.4-5.0); ALK PHOS 65 U/L (45-117); ANION GAP 9 MMOL/L (8-16); BILIRUBIN,TOTAL 1.1 mg/dl (0.2-1); CALCIUM 8.8 mg/dl (8.5-10); CHLORIDE 98 mmol/L (98-107); CO2 27 mmol/L (21-32); CREATININE 1.1 mg/dl (0.55-1.3); GLUCOSE,RANDOM 100 mg/dl (74-106); MAGNESIUM 2.2 mg/dL (1.8-2.4); SGOT/AST 15 U/L (15-37); SGPT/ALT 16 U/L (13-61); SODIUM 134 mmol/L (136-145)
[2021-03-30] MEDS ORDERED: KETOROLAC TROMETHAMINE 30 MG/1 ML VIAL ONE (13:05)
[2021-03-30 13:52] LABS: LIPASE 74 U/L (73-393)
[2021-03-30 13:59] LABS: N-TERMINAL BNP 26.3 pg/ml (5-125)
[2021-03-30 14:43] VITALS: BP 116/66; PULSE 80; TEMP 97.9
== END 2021-03-30 15:04 | disposition home or self-care (01) ==
LOC: FER 10:40
PROC: 3E03329 Introduction of Other Anti-infective into Peripheral Vein, Percutaneous Approach (ICD-10-PCS; principal; 2021-03-30)
PROC: 3E0333Z Introduction of Anti-inflammatory into Peripheral Vein, Percutaneous Approach (ICD-10-PCS; 2021-03-30)
PROC: 3E033NZ Introduction of Analgesics, Hypnotics, Sedatives into Peripheral Vein, Percutaneous Approach (ICD-10-PCS; 2021-03-30)
PROC: 3E033GC Introduction of Other Therapeutic Substance into Peripheral Vein, Percutaneous Approach (ICD-10-PCS; 2021-03-30)
DX: K57.92 Diverticulitis of intestine, part unspecified, without perforation or abscess without bleeding (principal); R10.32 Left lower quadrant pain
CPT/HCPCS: 36415; 74177-TC; 80053; 82550; 83605; 83690; 83735; 83880; 84484; 85025; 85610; 85730; 86850; 86900; 86901; 93005; 99285-25; C9803; J0131; Q9967; U0003; U0005

== ENCOUNTER 2024-12-26 14:17 | Emergency (ER) | payer OTHER ==
[2024-12-26 14:31] VITALS: BP 121/69; PULSE 99; RESP 18; TEMP 97.5; BMI 23.6
[2024-12-26] MEDS ORDERED: KETOROLAC TROMETHAMINE 30 MG/1 ML VIAL ONE (14:52)
[2024-12-26] MEDS ORDERED: LIDOCAINE 5% TOPICAL PATCH ONE (14:52)
[2024-12-26] MEDS: KETOROLAC TROMETHAMINE 30 MG/1 ML VIAL IM ONE (15:00)
[2024-12-26] MEDS: LIDOCAINE 5% TOPICAL PATCH TP ONE (15:00)
[2024-12-26] MEDS ORDERED: LIDOCAINE PATCH REMOVAL MC SCH (22:00)
== END 2024-12-26 15:50 | disposition home or self-care (01) ==
LOC: FER 14:17
PROC: 3E0233Z Introduction of Anti-inflammatory into Muscle, Percutaneous Approach (ICD-10-PCS; principal; 2024-12-26)
DX: M54.2 Cervicalgia (principal); M25.511 Pain in right shoulder; M54.9 Dorsalgia, unspecified; V43.53XA Car driver injured in collision with pick-up truck in traffic accident, initial encounter; Y92.410 Unspecified street and highway as the place of occurrence of the external cause
CPT/HCPCS: 99284-25